=== PATIENT | female | born 1970 | race Caucasian/White ===

== ENCOUNTER 2024-04-10 09:21 | Emergency (ER) | payer OTHER ==
[~2024-04-10] VITALS: Ht 157.5 cm; Wt 69.9 kg
[2024-04-10] MEDS ORDERED: HYDROCODONE/APAP 5/325MG TABLET ONE (12:05)
[2024-04-10] MEDS ORDERED: IBUPROFEN 600 MG TABLET ONE (12:06)
[2024-04-10] MEDS: IBUPROFEN 600 MG TABLET PO ONE (12:13)
[2024-04-10] MEDS: HYDROCODONE/APAP 5/325MG TABLET PO ONE (12:14)
[2024-04-10] MEDS ORDERED: HYDR-4209 PO (12:45)
[2024-04-10] MEDS ORDERED: IBUP-1490 PO (12:45)
[2024-04-10 13:11] VITALS: BP 121/74; TEMP 98.3; O2SAT 98
== END 2024-04-10 13:14 | disposition home or self-care (01) ==
LOC: ER 09:24
DX: S16.1XXA Strain of muscle, fascia and tendon at neck level, initial encounter (principal); S90.32XA Contusion of left foot, initial encounter; K21.9 Gastro-esophageal reflux disease without esophagitis; M50.30 Other cervical disc degeneration, unspecified cervical region; Z60.2 Problems related to living alone; V03.90XA Pedestrian on foot injured in collision with car, pick-up truck or van, unspecified whether traffic or nontraffic accident, initial encounter; Y93.01 Activity, walking, marching and hiking; Y92.89 Other specified places as the place of occurrence of the external cause; Y99.8 Other external cause status
CPT/HCPCS: 72125-TC; 73630-TC